=== PATIENT | female | born 1955 | race American Indian/Alaskan Native ===

== ENCOUNTER 2016-05-26 10:38 | Outpatient (CLI) | payer BC ==
--- NOTE | 2016-05-26 11:50 | XRay Report ---
LUMBAR SPINE RADIOGRAPHS INDICATION: Lumbago of lumbosacral region with sciatica. COMPARISON: None similar. FINDINGS: AP and lateral lumbar spine radiographs suggest moderate L5-S1 disc narrowing with adjacent spurring. Preserved vertebral body stature. Mid to lower lumbar facet arthropathy. Mild L4-L5 disc narrowing also not excluded. Clear visualized lung bases. Probable cholecystectomy clips. Intact SI joints. Ascending colon and rectal stool. CONCLUSION: Few lumbar degenerative changes, greatest at L5-S1, as described. Please correlate. Thank you for the opportunity to participate in this patient's care.
== END 2016-05-26 10:39 | disposition home or self-care (01) ==
LOC: XRAY 10:38
PROVIDERS: ATTEND Internal Medicine
DX: M47.897 Other spondylosis, lumbosacral region (principal); Z90.49 Acquired absence of other specified parts of digestive tract
CPT/HCPCS: 72100

== ENCOUNTER 2020-05-08 09:42 | Outpatient (CLI) | payer BC ==
--- NOTE | 2020-05-08 10:31 | XRay Report ---
LEFT ELBOW 4 VIEWS INDICATION / CLINICAL INFORMATION: LEFT ELBOW PAIN. COMPARISON: None available. FINDINGS: No fracture or other skeletal abnormality. No evidence of joint effusion or hemarthrosis. Signer Name: Abilio Hazel MD Signed: 05/08/2020 10:26 AM Workstation Name: [id number]
== END 2020-05-08 09:43 | disposition home or self-care (01) ==
LOC: XRAY 09:42
PROVIDERS: ATTEND Internal Medicine
DX: M25.422 Effusion, left elbow (principal); M25.522 Pain in left elbow